=== PATIENT | male | born 1995 | race Caucasian/White ===

== ENCOUNTER 2016-11-04 10:06 | Emergency (ER) | payer OTHER ==
[~2016-11-04] VITALS: Ht 175.3 cm; Wt 71.6 kg
[2016-11-04 10:12] VITALS: TEMP 36.6; Ht 175.3 cm; Wt 71.6 kg
[2016-11-04] MEDS ORDERED: SODIUM CHLORIDE 0.9% 1000ML 1,000 ML IV STA (10:27)
[2016-11-04] MEDS ORDERED: LORAZEPAM 1 MG TAB SL STA (11:21)
[2016-11-04] MEDS ORDERED: LURA40TA PO (11:57)
[2016-11-04] MEDS ORDERED: LORA-741 PO (13:23)
--- NOTE | 2016-11-04 13:23 | EMERGENCY ROOM VISIT NOTE ---
History Report prepared by Rickey: Gris Rankin Under the Supervision of: Dr. Isaías Zhang D.O. First contact with patient: 10:09 Chief Complaint: ALTERED MENTAL STATUS Stated Complaint: AMS / History of Present Illness The patient is a 20 year old male who presents to the Emergency Room with persistent AMS starting several days [employer]. The patient's professor/friend contacted the police over concerns of the patient's abnormal behavior. The police found the patient who told them that he had not eaten or slept in 3 days and would like to go to the hospital to find someone to listen to him. The patient states that he has not eaten or slept in 3 days because he does not want to. He has been roaming around campus trying to find people to listen to him. He states that his gym safety trainer encouraged him to talk to people and try to understand them. This is what he has been trying to do for the past 3 days. He denies any recent drug or alcohol use. He admits to marijuana and alcohol use in the past. He denies any auditory or visual hallucinations. Source of History: patient, police Onset: [employer] Position: other (global) Quality: other (AMS) Timing: other (persistent) Associated Symptoms: + neck pain, + abdominal pain Note: Pt denies auditory or visual hallucinations. Review of Systems See HPI for pertinent positives & negatives. A total of 10 systems reviewed and were otherwise negative. Past Medical & Surgical Medical Problems: (1) Bipolar 1 disorder Family History No pertinent family history stated. Social History Occupation Status: [employer] Current/Historical Medications Scheduled Lurasidone Hcl (Latuda), 1 TAB PO DAILY Scheduled PRN Lorazepam (Ativan), 0.5 MG PO Q6H PRN for Sleep Allergies Coded Allergies: No Known Allergies (Unverified , 11/04/16) Physical Exam Vital Signs Date Time Temp Pulse Resp B/P (MAP) Pulse Ox O2 Delivery O2 Flow Rate FiO2 11/04/16 15:19 79 150/75 99 11/04/16 10:12 36.6 63 18 147/90 99 Room Air Physical Exam CONSTITUTIONAL/VITAL SIGNS: Reviewed / noted above. GENERAL: Non-toxic in appearance. INTEGUMENTARY: Warm, dry, and [place]. HEAD: Normocephalic. EYES: without scleral icterus or trauma. ENT/OROPHARYNX: clear and moist. LYMPHADENOPATHY/NECK: Is supple without lymphadenopathy or meningismus. RESPIRATORY: Lungs clear and equal. CARDIOVASCULAR: Regular rate and rhythm. GI/ABDOMEN: Soft and nontender. No organomegaly or pulsatile mass. No rebound or guarding. Normal bowel sounds. EXTREMITIES: Warm and well perfused. BACK: No CVA tenderness. NEUROLOGICAL: Intact without focal deficits. PSYCHIATRIC: Emotionally labile, at times crying, at times just staring. MUSCULOSKELETAL: Normally developed with good muscle tone. Medical Decision & Procedures Laboratory Results Test 11/04/16 10:27 Laboratory results as stated above per my review. Medications Administered Medications (Trade) Dose Ordered Sig/Smith Route Start Time Stop Time Status Last Admin Dose Admin Lorazepam (Ativan Tab) 1 mg NOW STAT SL 11/04/16 11:21 11/04/16 11:22 DC 11/04/16 12:46 1 MG Haloperidol Lactate (Haldol Inj) 5 mg NOW STAT IM 11/04/16 15:03 11/04/16 15:07 DC 11/04/16 15:13 5 MG Lorazepam (Ativan Inj) 2 mg NOW STAT IM 11/04/16 15:03 11/04/16 15:07 DC 11/04/16 15:13 2 MG ED Course 1010: Previous medical records were reviewed. The patient was evaluated in room B10. A complete history and physical examination was performed. 1027: NSS 1000 ml @ 999 mls/hr IV. 1121: Lorazepam 1 mg SL. 1210: I reevaluated the patient. After a long discussion with the patient's mother, his father over the phone, and the patient, we have made a plan to discharge the patient in 2 hours when his mother returns. 1447: I reevaluated the patient. He has become more agitated. He will be 302ed. I have explained this to his mother. 1500: The patient was signed out to Dr. Pfeiffer at the end of my shift. 1503: Lorazepam Inj 2 mg IM, Haloperidol Inj 5 mg IM. Medical Decision differential includes toxic ingestions, self-mutilation, suicidal ideation, suicide attempt, depression, electrolyte or metabolic abnormality. This is a 20-year-old male who presents to the emergency department for not acting quite right. Ultimately, after discussing the situation with the patient 's mother who was here in the emergency department, the patient has not been taking his bipolar medications for some time. They presented to school at [employer] and possibly related to the stress of starting school, he has become somewhat manic. He reportedly not slept or ate for 3 days. He has been going up to strangers and making faces at them. The patient did not want blood work. The mother initially wanted the patient to go home with her. She was going to try to give the patient his medication and taken back to [place]. The patient had very labile emotions here. One second the patient would be calm, seconds later he would become belligerent and screaming and aggressive toward staff and other times he would then cry. He also at times stares into space. Other times he would seem lucid but condescending. The patient became very aggressive when the mother told him that she was going to take him back to [place]. He threatened staff here. At this point the patient was felt to be very unstable and presents a harm to himself and others and will require involuntary admission to a psychiatric facility for more intensive inpatient therapy that could not be provided as an outpatient. He is unstable, can not be reasoned with and his lift or others lives are in danger. His friend/professor considered him a "ticking time bomb". Signed out to Dr. Pfeiffer awaiting placement. Medication Reconcilliation Current Medication List: was personally reviewed by me Blood Pressure Screening Patient's blood pressure: Elevated blood pressure Blood pressure disposition: Elevated BP felt to be situational Impression Primary Impression: Bipolar 1 disorder, depressed, severe Scribe Attestation The scribe's documentation has been prepared under my direction and personally reviewed by me in its entirety. I confirm that the note above accurately reflects all work, treatment, procedures, and medical decision making performed by me. Departure Information Dispostion Still a Patient Prescriptions Lorazepam (ATIVAN) 0.5 Mg Tab 0.5 MG PO Q6H Y for Sleep, #10 TAB Prov: Isaías Zhang D.O. 11/04/16 Patient Instructions My [facility]
[2016-11-04] MEDS ORDERED: LORAZEPAM 2 MG/ML 1 ML VIAL IM STA (15:03)
[2016-11-04] MEDS ORDERED: HALOPERIDOL LACTATE 5 MG/ML 1 ML VIAL IM STA (15:03)
[2016-11-04 16:33] LABS: BASO % 0.2 %; BASO ABS # 0.01 K/uL (0-0.2); COMPLETE YES; EOS % 1.8 %; LYMPH % 26.1 %; LYMPH ABS # 1.44 K/uL (1.2-3.4); MEAN CELL VOLUME 88.6 fL (80-100); MEAN CORPUSCULAR HEMOGLOBIN 30.2 pg (25-34); MEAN CORPUSCULAR HGB CONC 34.1 g/dl (32-36); MONO % 12.2 %; NEUT % 59.7 %; PLATELET COUNT 170 K/uL (130-400); RED BLOOD COUNT 4.63 M/uL (4.7-6.1); WHITE BLOOD COUNT 5.51 K/uL (4.8-10.8)
[2016-11-04 16:51] LABS: ACETAMINOPHEN < 2 ug/ml (10-30); ALT/SGPT 46 U/L (12-78); AST/SGOT 32 U/L (15-37); BLOOD UREA NITROGEN 18 mg/dl (7-18); BUN/CREATININE RATIO 19.5 (10-20); CALCIUM 8.6 mg/dl (8.5-10.1); CARBON DIOXIDE 27 mmol/L (21-32); CHLORIDE 109 mmol/L (98-107); CREATININE 0.91 mg/dl (0.60-1.40); GLUCOSE 82 mg/dl (70-99); POTASSIUM 3.8 mmol/L (3.5-5.1); SODIUM 142 mmol/L (136-145)
[2016-11-04 17:02] LABS: ALKALINE PHOSPHATASE 187 U/L (45-117)
[2016-11-04 17:05] LABS: BENZODIAZEPINE, URINE NEG (NEG); COCAINE,URINE NEG (NEG); PHENCYCLIDINE, URINE NEG (NEG)
[2016-11-04 21:03] VITALS: BP 117/60; PULSE 82; O2SAT 96
--- NOTE | 2016-11-04 22:36 | EMERGENCY ROOM VISIT NOTE ---
ED Visit Note First contact with patient: 15:43 This patient was initially seen by Dr. Zhang and medically cleared by him. He was signed out to me pending blood work and evaluation by mental health. His blood work was unremarkable. Dr. Zhang had already signed a 302 petition for involuntary commitment. The patient was accepted to [facility]. He was transferred securely via [place].
== END 2016-11-05 00:44 ==
LOC: EDBD 10:06 → C.EDB 10:08 → C.EDA 11-05 00:44
DX: F31.4 Bipolar disorder, current episode depressed, severe, without psychotic features (principal); R41.82 Altered mental status, unspecified; M54.2 Cervicalgia; R10.9 Unspecified abdominal pain; Z79.899 Other long term (current) drug therapy